=== PATIENT | male | born 1975 | race Caucasian/White ===

== ENCOUNTER 2017-12-28 13:35 | Observation (INO) | payer OTHER ==
[~2017-12-28] VITALS: Ht 180.3 cm; Wt 138.0 kg
[2017-12-28 13:40] VITALS: BP 142/86; PULSE 73; RESP 16; TEMP 99.3; O2SAT 97
[2017-12-28 15:51] VITALS: BP 130/77; PULSE 76; RESP 18; O2SAT 97
[2017-12-28] MEDS ORDERED: SODIUM CHLORIDE 0.9% FLUSH 10 ML FLUSH IVF PRN (16:00)
[2017-12-28] MEDS ORDERED: ASPIRIN 325 MG TAB PO ONE (16:00)
--- NOTE | 2017-12-28 16:09 | PD ---
HPI Chief Complaint: Chest Pain Time Seen by Provider: 15:40 Travel History International Travel<30 days: No Contact w/Intl Traveler<30days: No Traveled to known affect area: No History of Present Illness HPI 42-year-old male complains of chest pain retrosternal as well as paresthesias in the right upper extremity. Duration has been about 1 week. The patient reports insomnia last night due to symptoms. Severity is mild to moderate. He reports shortness of breath. Patient has a history of hypertension. No tobacco hyper lipidemia or diabetes reported. No family history reported. Patient reports significant stress at work. FOR[facility]LY [facility], LATER [facility] Past Medical History Medical History: Denies Significant Hx Diminished Hearing: No Influenza Vaccination: No Social History Alcohol Use: Yes Tobacco Use: No Allergies-Medications (Allergen,Severity, Reaction): Coded Allergies: No Known Allergies (Unverified , 12/28/17) Reported Meds & Prescriptions Reported Meds & Active Scripts Active No Active Prescriptions or Reported Medications Review of Systems Except as stated in HPI: all other systems reviewed are Neg General / Constitutional: No: Fever, Chills Physical Exam Narrative GENERAL: 42-year-old male well-nourished well-developed no acute distress speaking full sentences Vital Signs Date Time Temp Pulse Resp B/P (MAP) Pulse Ox O2 Delivery O2 Flow Rate FiO2 12/28/17 15:52 98 Room Air 12/28/17 15:51 76 18 130/77 (94) 97 Room Air 12/28/17 15:50 76 12/28/17 13:40 99.3 73 16 142/86 (104) 97 SKIN: Warm and dry. HEAD: Atraumatic. Normocephalic. EYES: Pupils equal and round. No scleral icterus. No injection or drainage. ENT: No nasal bleeding or discharge. Mucous membranes pink and moist. NECK: Trachea midline. No JVD. CARDIOVASCULAR: Regular rate and rhythm. RESPIRATORY: No accessory muscle use. Clear to auscultation. Breath sounds equal bilaterally. GASTROINTESTINAL: Abdomen soft, non-tender, nondistended. Hepatic and splenic margins not palpable. MUSCULOSKELETAL: Extremities without clubbing, cyanosis, or edema. No obvious deformities. NEUROLOGICAL: Awake and alert. No obvious cranial nerve deficits. Motor grossly within normal limits. Five out of 5 muscle strength in the arms and legs. Normal speech. PSYCHIATRIC: Appropriate mood and affect; insight and judgment normal. Data Data Last Documented VS Vital Signs Date Time Temp Pulse Resp B/P (MAP) Pulse Ox O2 Delivery O2 Flow Rate FiO2 12/28/17 15:52 98 Room Air 12/28/17 15:51 76 18 130/77 (94) 12/28/17 13:40 99.3 Orders Orders Electrocardiogram (12/28/17 13:47) Electrocardiogram (12/28/17 15:47) Basic Metabolic Panel (Bmp) (12/28/17 15:47) Ckmb (Isoenzyme) Profile (12/28/17 15:47) Complete Blood Count With Diff (12/28/17 15:47) Magnesium (Mg) (12/28/17 15:47) Prothrombin Time / Inr (Pt) (12/28/17 15:47) Act Partial Throm Time (Ptt) (12/28/17 15:47) Troponin I (12/28/17 15:47) Ecg Monitoring (12/28/17 15:47) Bilateral Bp Monitoring (12/28/17 15:47) Iv Access Insert/Monitor (12/28/17 15:47) Oximetry (12/28/17 15:47) Oxygen Administration (12/28/17 15:47) Aspirin (Aspirin) (12/28/17 16:00) Sodium Chloride 0.9% Flush (Ns Flush) (12/28/17 16:00) Chest, Pa & Lat (12/28/17 15:47) CKMB (12/28/17 16:20) CKMB% (12/28/17 16:20) Sodium Chlor 0.9% 1000 Ml Inj (Ns 1000 M (12/28/17 17:30) Admit Order (Ed Use Only) (12/28/17 ) Independent Film Maker / Telemetry LEORA.Q8H (12/28/17 17:21) Vital Signs (Adult) Q4H (12/28/17 17:21) Diet Npo (12/28/17 Dinner) Activity Bed Rest (12/28/17 17:21) Labs Laboratory Tests Test 12/28/17 16:20 White Blood Count 7.5 TH/MM3 Red Blood Count 4.47 MIL/MM3 Hemoglobin 13.9 GM/DL Hematocrit 40.6 % Mean Corpuscular Volume 90.9 FL Mean Corpuscular Hemoglobin 31.1 PG Mean Corpuscular Hemoglobin Concent 34.2 % Red Cell Distribution Width 12.6 % Platelet Count 279 TH/MM3 Mean Platelet Volume 7.0 FL Neutrophils (%) (Auto) 67.2 % Lymphocytes (%) (Auto) 23.1 % Monocytes (%) (Auto) 7.7 % Eosinophils (%) (Auto) 1.0 % Basophils (%) (Auto) 1.0 % Neutrophils # (Auto) 5.0 TH/MM3 Lymphocytes # (Auto) 1.7 TH/MM3 Monocytes # (Auto) 0.6 TH/MM3 Eosinophils # (Auto) 0.1 TH/MM3 Basophils # (Auto) 0.1 TH/MM3 CBC Comment DIFF FINAL Differential Comment Prothrombin Time 10.0 SEC Prothromb Time International Ratio 1.0 RATIO Activated Partial Thromboplast Time 25.7 SEC Blood Urea Nitrogen 22 MG/DL Creatinine 1.30 MG/DL Random Glucose 93 MG/DL Calcium Level 8.7 MG/DL Magnesium Level 2.4 MG/DL Sodium Level 136 MEQ/L Potassium Level 4.1 MEQ/L Chloride Level 103 MEQ/L Carbon Dioxide Level 25.9 MEQ/L Anion Gap 7 MEQ/L Estimat Glomerular Filtration Rate 61 ML/MIN Total Creatine Kinase 362 U/L Creatine Kinase MB 1.5 NG/ML Creatine Kinase MB % 0.4 % Troponin I LESS THAN 0.02 NG/ML MDM Medical Decision Making Medical Screen Exam Complete: Yes Emergency Medical Condition: Yes Differential Diagnosis NSTEMI, unstable angina, coronary vasospasm, PE, PTX, aortic dissection, pericarditis, myocarditis, endocarditis, PNA, esophageal disease, aneurysm, musculoskeletal etiologies, anxiety, cocaine/sympathomimetic abuse Narrative Course EKG shows a sinus rhythm without ischemic injury pattern Last Impressions Chest X-Ray 12/28/17 1717 Signed Impressions: Service Date/Time: Thursday, December 28, 2017 15:57 - CONCLUSION: No acute cardiopulmonary process. Terrell Pickering MD CBC & BMP Diagram 12/28/17 16:20 Calcium Level 8.7, Magnesium Level 2.4 Troponin is less than 0.02 Patient's presentation raises concern for coronary disease and he will be kept here for chest pain center evaluation. d/w Dr Ramirez for [facility] Diagnosis Primary Impression: Chest pain Qualified Codes: R07.9 - Chest pain, unspecified Admitting Information Admitting Physician Requests: Observation Scripts No Active Prescriptions or Reported Meds Stanislaw Richey MD Dec 28, 2017 16:08
--- NOTE | 2017-12-28 16:20 | RADRPT ---
EXAM DATE/TIME: 12/28/2017 15:57 [facility] COMPARISON: No previous studies available for comparison. INDICATIONS : Chest pain. MEDICAL HISTORY : None. SURGICAL HISTORY : None. ENCOUNTER: Initial ACUITY: 1 week PAIN SCORE: 7/10 LOCATION: Bilateral chest FINDINGS: PA and lateral views of the chest demonstrate the lungs to be symmetrically aerated without evidence of mass, infiltrate or effusion. The cardiomediastinal contours are unremarkable. Osseous structure s are intact. CONCLUSION: No acute cardiopulmonary process. Terrell Pickering MD on December 28, 2017 at 16:17 Board Certified Radiologist. This report was verified electronically.
[2017-12-28 16:40] LABS: BASOPHIL # 0.1 TH/MM3 (0-0.2); EOSINOPHIL # 0.1 TH/MM3 (0-0.4); HEMATOCRIT 40.6 % (39.0-51.0); HEMOGLOBIN 13.9 GM/DL (13.0-17.0); LYMPH % 23.1 % (9.0-44.0); LYMPHOCYTE # 1.7 TH/MM3 (1.0-4.8); MEAN CELL VOLUME 90.9 FL (80.0-100.0); MEAN CORPUSCULAR HEMOGLOBIN 31.1 PG (27.0-34.0); MEAN CORPUSCULAR HGB CONC 34.2 % (32.0-36.0); MONO % 7.7 % (0.0-8.0); MONOCYTE # 0.6 TH/MM3 (0-0.9); NEUT % 67.2 % (16.0-70.0); PLATELET COUNT 279 TH/MM3 (150-450); RED BLOOD COUNT 4.47 MIL/MM3 (4.50-5.90); RED CELL DISTRIBUTION WIDTH 12.6 % (11.6-17.2); WHITE BLOOD COUNT 7.5 TH/MM3 (4.0-11.0)
[2017-12-28 16:49] LABS: CHLORIDE 103 MEQ/L (98-107); SODIUM (NA) 136 MEQ/L (136-145)
[2017-12-28 16:52] LABS: CALCIUM 8.7 MG/DL (8.5-10.1)
[2017-12-28 16:53] LABS: BICARBONATE 25.9 MEQ/L (21.0-32.0); BLOOD UREA NITROGEN 22 MG/DL (7-18); GLUCOSE,RANDOM 93 MG/DL (74-106); MAGNESIUM 2.4 MG/DL (1.5-2.5)
[2017-12-28 16:56] LABS: GLOMERULAR FILTRATION RATE 61 ML/MIN (>89)
[2017-12-28 17:01] LABS: TROPONIN I LESS THAN 0.02 NG/ML (0.02-0.05)
[2017-12-28] MEDS ORDERED: SODIUM CHLOR 0.9% 1000 ML INJ 1,000 ML IV ONE (17:30)
[2017-12-28 17:34] VITALS: BP 133/80; PULSE 66; RESP 20; O2SAT 98
[2017-12-28] MEDS ORDERED: MORPHINE SULFATE 2 MG/ML INJ IV PUSH PRN (17:45)
[2017-12-28] MEDS ORDERED: SODIUM CHLORIDE 0.9% FLUSH 10 ML FLUSH IV FLUSH PRN (17:45)
[2017-12-28] MEDS ORDERED: ACETAMINOPHEN 500 MG CPLT PO PRN (17:45)
[2017-12-28] MEDS ORDERED: ONDANSETRON HCL 4 MG/2 ML VIAL IV PUSH PRN (17:45)
[2017-12-28] MEDS ORDERED: ACETAMINOPHEN/HYDROcodone 325 MG/7.5 MG TAB PO PRN (17:45)
[2017-12-28] MEDS ORDERED: TEMAZEPAM 15 MG CAP PO PRN (17:45)
--- NOTE | 2017-12-28 17:57 | HHI.HP ---
[facility] Service [facility] Primary Care Physician No Primary Care Physician Admission Diagnosis Chest Pain Diagnoses: (1) Chest pain Diagnosis: Principal Chief Complaint: Chest pain Travel History International Travel<30 Days: No Contact w/Intl Traveler <30 Da: No Traveled to Known Affected Are: No History of Present Illness 42-year-old male with no chronic medical illnesses who presented to the hospital because of recurrent chest pain. Patient states that he has been experiencing chest pain for the last week. He states that the pain starts in his right arm and goes up to his neck, jaw and then down into his chest. Last for approximately 30 minutes and then goes away on its own. He has been experiencing at least 4 times in the last week. States that the pain is typically a 5/10 on a pain scale. The pain is usually worsened after stressful events. 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 Last night there was stressful event and he developed the pain. He went home and he went to sleep and slept until about 1230 this afternoon and when he woke up he started developing the pain again so he came to the emergency department for evaluation. Patient indicates that he denied any nausea, vomiting, diaphoresis. He does get associated lightheadedness, shortness of breath. Patient never had a formal cardiac workup in the past. Patient's only risk factor is body habitus. Patient was evaluated emergency department recommended observation chest pain center. Review of Systems Cardiovascular: COMPLAINS OF: Chest pain Except as stated in HPI: all other systems reviewed are Neg Past Family Social History Past Medical History No chronic medical illnesses Past Surgical History Left knee surgery Right foot mass removal Reported Medications Reported Meds & Active Scripts Active No Active Prescriptions or Reported Medications Allergies: Coded Allergies: No Known Allergies (Unverified , 12/28/17) Family History Family history was reviewed and unremarkable for any heart disease, lung disease , kidney disease, cancer, seizure, stroke Social History Patient does drink alcohol beverages approximately 2-3 drinks per week. Denies any tobacco or illicit drug Physical Exam Vital Signs Vital Signs Date Time Temp Pulse Resp B/P (MAP) Pulse Ox O2 Delivery O2 Flow Rate FiO2 12/28/17 17:34 66 20 133/80 (97) 98 Room Air 12/28/17 15:52 98 Room Air 12/28/17 15:51 76 18 130/77 (94) 97 Room Air 12/28/17 15:50 76 12/28/17 13:40 99.3 73 16 142/86 (104) 97 Physical Exam GENERAL: Well-developed, well-nourished, in no acute distress. alert and orientated HEENT: Head is normocephalic without any lesions or masses noted. Facial features are symmetric. Eyes: Pupils equal round reactive to light. Extraocular muscles are intact. Conjunctivae were clear. Oropharyngeal: Pharynx without any erythema edema. Tongue is midline without deviation. Buccal mucosa is moist without any masses or lesions NECK: Supple without any masses. Trachea midline no deviation. No JVD, no bruits are appreciated CARDIAC: Regular rhythm, regular rate. S1/S2 are heard. No murmurs gallops or rubs. LUNGS: Clear to auscultation bilaterally. No wheeze, rhonchi or rales. No use of accessory muscles on inspiration or expiration. ABDOMEN: Soft, nontender. Nondistended. Bowel sounds heard in all 4 quadrants. No organomegaly or masses. Negative rebound, negative guarding EXTREMITIES: No edema, pulses are equal bilaterally. No cyanosis or clubbing NEUROLOGY: Mood and affect appear appropriate. Cranial nerves II through XII grossly intact. Muscle strength 5/5 in upper and lower extremities bilaterally. Deep tendon reflexes are 2+ in upper and lower extremities bilaterally. Laboratory Laboratory Tests Test 12/28/17 16:20 White Blood Count 7.5 Red Blood Count 4.47 Hemoglobin 13.9 Hematocrit 40.6 Mean Corpuscular Volume 90.9 Mean Corpuscular Hemoglobin 31.1 Mean Corpuscular Hemoglobin Concent 34.2 Red Cell Distribution Width 12.6 Platelet Count 279 Mean Platelet Volume 7.0 Neutrophils (%) (Auto) 67.2 Lymphocytes (%) (Auto) 23.1 Monocytes (%) (Auto) 7.7 Eosinophils (%) (Auto) 1.0 Basophils (%) (Auto) 1.0 Neutrophils # (Auto) 5.0 Lymphocytes # (Auto) 1.7 Monocytes # (Auto) 0.6 Eosinophils # (Auto) 0.1 Basophils # (Auto) 0.1 CBC Comment DIFF FINAL Differential Comment Prothrombin Time 10.0 Prothromb Time International Ratio 1.0 Activated Partial Thromboplast Time 25.7 Blood Urea Nitrogen 22 Creatinine 1.30 Random Glucose 93 Calcium Level 8.7 Magnesium Level 2.4 Sodium Level 136 Potassium Level 4.1 Chloride Level 103 Carbon Dioxide Level 25.9 Anion Gap 7 Estimat Glomerular Filtration Rate 61 Total Creatine Kinase 362 Creatine Kinase MB 1.5 Creatine Kinase MB % 0.4 Troponin I LESS THAN 0.02 Result Diagram: 12/28/17 1620 12/28/17 1620 Imaging Last Impressions Chest X-Ray 12/28/17 1547 Signed Impressions: Service Date/Time: Thursday, December 28, 2017 15:57 - CONCLUSION: No acute cardiopulmonary process. MD Christian Underwood VTE Risk Assessment Christian VTE Risk Assessment: No/Low Risk (score <= 1) Christian Risk Assessment Model Point Value = 1 Point Value = 2 Point Value = 3 Point Value = 5 Age 41-60 Minor surgery BMI > 25 kg/m2 Swollen legs Varicose veins or History of unexplained or recurrent spontaneous Oral contraceptives or hormone replacement Sepsis (< 1 month) Serious lung disease, including pneumonia (< 1 month) Abnormal pulmonary function Acute myocardial infarction Congestive heart failure (< 1 month) History of inflammatory bowel disease Medical patient at bed rest Age 61-74 Arthroscopic surgery Major open surgery (> 45 min) Laparoscopic surgery (> 45 min) Malignancy Confined to bed (> 72 hours) Immobilizing plaster cast Central venous access Age >= 75 History of VTE Family history of VTE Factor V Leiden Prothrombin [id number] Lupus anticoagulant Anticardiolipin antibodies Elevated serum homocysteine Heparin-induced thrombocytopenia Other congenital or acquired thrombophilia Stroke (< 1 month) Elective arthroplasty Hip, pelvis, or leg fracture Acute spinal cord injury (< 1 month) Prophylaxis Regimen Total Risk Factor Score Risk Level Prophylaxis Regimen 0-1 Low Early ambulation 2 Moderate Order ONE of the following: *Sequential Compression Device (SCD) *Heparin 5000 units SQ BID 3-4 Higher Order ONE of the following medications: *Heparin 5000 units SQ TID *Enoxaparin/Lovenox 40 mg SQ daily (WT < 150 kg, CrCl > 30 mL/min) *Enoxaparin/Lovenox 30 mg SQ daily (WT < 150 kg, CrCl > 10-29 mL/min) *Enoxaparin/Lovenox 30 mg SQ BID (WT < 150 kg, CrCl > 30 mL/min) AND/OR *Sequential Compression Device (SCD) 5 or more Highest Order ONE of the following medications: *Heparin 5000 units SQ TID (Preferred with Epidurals) *Enoxaparin/Lovenox 40 mg SQ daily (WT < 150 kg, CrCl > 30 mL/min) *Enoxaparin/Lovenox 30 mg SQ daily (WT < 150 kg, CrCl > 10-29 mL/min) *Enoxaparin/Lovenox 30 mg SQ BID (WT < 150 kg, CrCl > 30 mL/min) AND *Sequential Compression Device (SCD) Assessment and Plan Assessment and Plan Chest pain, atypical Patient with only risk factor of body habitus Will continue ruled patient out for an acute coronary event with serial cardiac enzymes Continue with serial EKGs, initial EKG which was reviewed by myself showed normal sinus rhythm Will pursue myocardial perfusion study in the morning if patient ruled out for acute coronary event secondary to patient body habitus and physical endurance Continue aspirin, nitroglycerin as needed, [employer], morphine, oxygen as needed DVT prevention Low risk, early ambulation Sequential compression devices Problem Qualifiers (1) Chest pain: Qualified Codes: R07.9 - Chest pain, unspecified Easton Mcbride Dec 28, 2017 17:57
[2017-12-28] MEDS ORDERED: SODIUM CHLORIDE 0.9% FLUSH 10 ML FLUSH IV FLUSH SCH (21:00)
[2017-12-29] MEDS ORDERED: ASPIRIN 325 MG TAB PO SCH (09:00)
--- NOTE | 2017-12-29 13:55 | EKG ---
Date Performed: 12/28/2017 Time Performed: 13:47:59 PTAGE: 42 years EKG: Sinus rhythm NORMAL ECG NO PREVIOUS TRACING DOCTOR: Tyrone Willoughby Interpretating Date/Time 12/29/2017 13:53:10
== END 2017-12-28 18:47 | disposition left against medical advice (07) ==
LOC: PHED 13:35 → PHEDA 17:21
PROVIDERS: ADMIT Hospitalist; ATTEND Hospitalist
DX: R07.89 Other chest pain (principal); R06.02 Shortness of breath; R42 Dizziness and giddiness; R20.2 Paresthesia of skin; G47.00 Insomnia, unspecified; I10 Essential (primary) hypertension
CPT/HCPCS: 71046; 80048; 82550; 82552; 83735; 84484; 85025; 85610; 85730; 93005; 99285; G0378; J7030